=== PATIENT | male | born 1970 | race Caucasian/White ===

== ENCOUNTER → 2018-08-09 | Outpatient (REF) | payer OTHER ==
[2018-08-10 13:56] LABS: FERRITIN 32 NG/ML (26-388); IRON (FE) 59 UG/DL (65-175); TOTAL IRON BINDING CAPACITY 365 UG/DL (250-450)
[2018-08-10 14:14] LABS: FOLATE 16.6 NG/ML
[2018-08-10 14:33] LABS: PERCENT SATURATION 16.1 % (19.7-50.0)
== END ==
LOC: M LAB REF 12:25
DX: D56.8 Other thalassemias (principal); D64.9 Anemia, unspecified

== ENCOUNTER → 2018-08-11 | Outpatient (REF) | payer OTHER ==
[2018-08-11 15:24] LABS: AMORPHOUS SEDIMENT, URINE LARGE AMOUNT (NEGATIVE); BACTERIA, URINE NONE SEEN; HYALINE CAST, URINE NONE SEEN /lpf (0-1); RBC, URINE NONE SEEN /hpf (0-3); SQUAMOUS EPITHELIAL CELL URINE NONE SEEN /hpf (SMALL AMT); WBC, URINE NONE SEEN /hpf (0-3)
[2018-08-11 15:25] LABS: MICROSCOPIC EXAM PERFORMED
== END ==
LOC: M LAB REF 15:09
DX: R31.9 Hematuria, unspecified (principal)

== ENCOUNTER 2018-09-28 09:32 | Day surgery (SDC) | payer OTHER ==
[~2018-09-28 09:32] MED LIST: LIDOCAINE 2% MDV 20 ML VIAL As Ordered; PROPOFOL 200 MG/20 ML VIAL As Ordered
[2018-09-28] MEDS ORDERED: NS 1,000 ML IV (10:00)
[2018-09-28] MEDS ORDERED: PROPOFOL 200 MG/20 ML VIAL As Ordered (12:08)
== END 2018-09-28 12:38 | disposition home or self-care (01) ==
LOC: M OPP 12:38
DX: K57.30 Diverticulosis of large intestine without perforation or abscess without bleeding (principal); K64.2 Third degree hemorrhoids; K44.9 Diaphragmatic hernia without obstruction or gangrene; K29.80 Duodenitis without bleeding; D56.9 Thalassemia, unspecified; K62.5 Hemorrhage of anus and rectum
CPT/HCPCS: 45378

== ENCOUNTER → 2020-09-02 | Outpatient (REF) | payer BC ==
[~2020-09-02] MED LIST changes: +FERR325T3 PO; -LIDOCAINE 2% MDV 20 ML VIAL As Ordered; +META28.32 PO; -PROPOFOL 200 MG/20 ML VIAL As Ordered
== END ==
LOC: M LAB REF 16:36
PROVIDERS: ATTEND Internal Medicine
DX: D64.9 Anemia, unspecified (principal)

== ENCOUNTER 2020-09-03 07:38 | Outpatient (CLI) | payer BC ==
[~2020-09-03] VITALS: Ht 177.8 cm; Wt 92.7 kg
[2020-09-03] VITALS (7 sets, daily range): BP systolic 121–161; BP diastolic 59–88
[~2020-09-03 07:38] MED LIST changes: +ACETAMINOPHEN 500 MG TAB PO SCH; -META28.32 PO; +diphenhydrAMINE 25MG CAP PO SCH
[2020-09-03] MEDS ORDERED: META28.32 PO (08:00)
== END 2020-09-03 12:25 | disposition home or self-care (01) ==
LOC: M INFU 07:38
PROVIDERS: ATTEND Internal Medicine
DX: D64.9 Anemia, unspecified (principal); R06.02 Shortness of breath
CPT/HCPCS: 36430; P9016

== ENCOUNTER → 2022-10-20 | Outpatient (REF) | payer OTHER, BC ==
[~2022-10-20] MED LIST changes: -ACETAMINOPHEN 500 MG TAB PO SCH; +META28.32 PO; -diphenhydrAMINE 25MG CAP PO SCH
== END ==
LOC: M LAB REF 09:21
PROVIDERS: ATTEND Surgery
DX: L72.11 Pilar cyst (principal)